=== PATIENT | female | born 1995 | race Caucasian/White ===

== ENCOUNTER 2020-01-06 10:30 | Emergency (ER) | payer MEDICAID ==
[~2020-01-06] VITALS: Ht 167.6 cm; Wt 48.7 kg
[2020-01-06] MEDS ORDERED: acetaminophen 1,000mg/100ml IV 100 ML IV STA (11:08)
[2020-01-06] MEDS ORDERED: LORazepam 2 mg/ml vial IV ONE (11:10)
[2020-01-06] MEDS ORDERED: metoclopramide 5 mg/ml inj IV ONE (11:10)
[2020-01-06] MEDS ORDERED: normal saline 1000ML IV soln IVB ONE (11:10)
[2020-01-06 11:23] LABS: BASOPHILS % (AUTO) 0.3 % (0-1); EOSINOPHILS # (AUTO) 0.4 X10'3 (0-0.9); EOSINOPHILS % (AUTO) 3.3 % (0-6); HEMATOCRIT 37.3 % (35.0-45.0); HEMOGLOBIN 12.5 g/dl (12.0-16.0); LYMPHOCYTES % (AUTO) 17.9 % (21-51); MEAN CORPUSCULAR HEMOGLOBIN 30.8 PG (27.0-31.0); MEAN CORPUSCULAR HGB CONC 33.6 g/dL (33.0-36.5); MEAN CORPUSCULAR VOLUME 91.8 FL (78-98); MONOCYTES # (AUTO) 0.9 X10'3 (0-0.9); MONOCYTES % (AUTO) 8.5 % (2-12); NEUTROPHILS # (AUTO) 7.8 X10'3 (1.8-7.7); PLATELET COUNT 224 X10'3 (140-440); RED BLOOD COUNT 4.07 X10'6 (4.20-5.60); RED CELL DISTRIBUTION WIDTH 13.5 % (11.5-14.5); WHITE BLOOD COUNT 11.1 X10'3 (4.5-11.0)
[2020-01-06 11:39] LABS: ALANINE AMINOTRANSFERASE 49 U/L (12-78); ALBUMIN/GLOBULIN RATIO 1.3 (1.1-1.5); ALKALINE PHOSPHATASE 64 IU/L (46-116); ANION GAP 9 (8-16); ASPARTATE AMINO TRANSFERASE 48 U/L (10-37); BILIRUBIN,TOTAL 0.3 MG/DL (0.1-1.0); BLOOD UREA NITROGEN 14 MG/DL (7-18); BUN/CREATININE RATIO 17.1 (6.6-38.0); CALCIUM 8.5 MG/DL (8.5-10.1); CHLORIDE 104 MMOL/L (99-107); CREATININE 0.82 MG/DL (0.40-0.90); GLUCOSE 99 MG/DL (70-104); POTASSIUM 3.3 MMOL/L (3.5-5.1); SODIUM 141 MMOL/L (135-145); TOTAL CARBON DIOXIDE 28.2 MMOL/L (24-32); eGFR 84 ML/MIN
[2020-01-06] MEDS ORDERED: ketorolac trometh. 30mg/ml inj. IV ONE (13:00)
[2020-01-06] MEDS ORDERED: diphenhydrAMINE 50 mg/ml inj IV ONE (13:05)
[2020-01-06] MEDS ORDERED: ketorolac tromethamine 15mg/ml inj. IV ONE (13:05)
[2020-01-06 13:27] VITALS: BP 117/73
[2020-01-06 13:43] LABS: CLARITY,URINE SLIGHTLY CLOUDY (Clear); COLOR,URINE YELLOW (Yellow); GLUCOSE, URINE NEGATIVE (Neg); KETONES,URINE NEGATIVE (Neg); LEUKOCYTE ESTERASE ,URINE NEGATIVE (Neg); NITRITES, URINE NEGATIVE (Neg); OCCULT BLOOD,URINE NEGATIVE (Neg); PROTEIN,URINE NEGATIVE (Neg); UROBILINOGEN,URINE 0.2 E.U/dL (0.2-1.0)
[2020-01-06 13:44] LABS: UA COLLECTION TYPE CLN CATCH MIDSTREAM
[2020-01-06 13:49] LABS: URINE AMPHETAMINE SCREEN NEGATIVE (Neg); URINE BARBITUATE SCREEN NEGATIVE (Neg); URINE BENZODIAZEPINES SCREEN NEGATIVE (Neg); URINE CANNABINOID SCREEN POSITIVE (Neg); URINE COCAINE SCREEN NEGATIVE (Neg); URINE METHADONE SCREEN NEGATIVE (Neg); URINE OPIATE SCREEN NEGATIVE (Neg); URINE PHENCYCLIDINE SCREEN NEGATIVE (Neg)
[2020-01-06 13:52] LABS: SQUAMOUS EPITHELIAL CELL,UR MANY /LPF (FEW)
[2020-01-06 13:53] LABS: BACTERIA,URINE 1+ /HPF (Neg); MUCUS STRANDS FEW /LPF (Neg); RBC,URINE 0-2 /HPF (0-2); WBC,URINE 0-4 /HPF (0-4)
[2020-01-06 13:57] LABS: URINE HCG NEGATIVE (NEG)
[2020-01-07] MEDS ORDERED: NAPR-56 PO (01:34)
[2020-01-07] MEDS ORDERED: AMOX-117 PO (01:34)
== END 2020-01-06 13:26 | disposition home or self-care (01) ==
LOC: ER 10:31
DX: R51.9 Headache, unspecified (principal); F41.9 Anxiety disorder, unspecified; Z79.899 Other long term (current) drug therapy
CPT/HCPCS: 36415; 70450; 80053; 80305; 81001; 81025; 85025; 96374; 96375; 99284; J0131; J1200; J1885; J2060; J2765; J7030; 96361; 96365

== ENCOUNTER 2020-01-06 23:16 | Emergency (ER) | payer MEDICAID ==
[~2020-01-06] VITALS: Ht 167.6 cm; Wt 48.6 kg
[2020-01-07] VITALS: BP 128/94
[2020-01-07] MEDS ORDERED: AMOX-117 PO (01:34)
[2020-01-07] MEDS ORDERED: NAPR-56 PO (01:34)
[2020-01-07] MEDS ORDERED: naproxen 500mg tablet PO ONE (01:35)
[2020-01-07] MEDS ORDERED: LORazepam 1 MG tablet PO ONE (01:35)
[2020-01-07] MEDS ORDERED: amox tr/potassium clavulanate 875/125mg TAB PO ONE (01:35)
== END 2020-01-07 01:50 | disposition home or self-care (01) ==
LOC: ER 23:17
DX: K02.9 Dental caries, unspecified (principal); R68.84 Jaw pain; G43.909 Migraine, unspecified, not intractable, without status migrainosus; Z79.899 Other long term (current) drug therapy
CPT/HCPCS: 99284

== ENCOUNTER 2022-08-29 17:42 | Emergency (ER) | payer MEDICAID ==
[~2022-08-29] VITALS: Ht 167.6 cm; Wt 50.0 kg
[2022-08-29 18:03] VITALS: BP 133/97
== END 2022-08-29 22:55 | disposition left against medical advice (07) ==
LOC: ER 17:43
DX: S01.85XA Open bite of other part of head, initial encounter (principal); Z53.21 Procedure and treatment not carried out due to patient leaving prior to being seen by health care provider; W54.0XXA Bitten by dog, initial encounter; Y93.89 Activity, other specified; Y92.89 Other specified places as the place of occurrence of the external cause; Y99.8 Other external cause status
CPT/HCPCS: 99281

== ENCOUNTER → 2023-08-11 | Outpatient (CLI) | payer MEDICAID | END | disposition home or self-care (01) | LOC: RAD 13:51 | PROVIDERS: ATTEND Obstetrics & Gynecology | DX: O32.1XX0 Maternal care for breech presentation, not applicable or unspecified (principal); O44.42 Low lying placenta NOS or without hemorrhage, second trimester; N91.2 Amenorrhea, unspecified; Z3A.19 19 weeks gestation of pregnancy | CPT/HCPCS: 76811 ==